=== PATIENT | male | born 1980 | race African-American/Black ===

== ENCOUNTER 2020-01-09 12:19 | Emergency (ER) | payer SELFPAY ==
[~2020-01-09] VITALS: Ht 167.6 cm; Wt 60.8 kg
[2020-01-09 12:26] VITALS: Ht 167.6 cm; Wt 60.8 kg
[2020-01-09 12:58] VITALS: BP 113/76
== END 2020-01-09 12:45 | disposition home or self-care (01) ==
LOC: ED 12:19
DX: S50.811A Abrasion of right forearm, initial encounter (principal); S60.512A Abrasion of left hand, initial encounter; S60.511A Abrasion of right hand, initial encounter; S80.212A Abrasion, left knee, initial encounter; S00.511A Abrasion of lip, initial encounter; V89.2XXA Person injured in unspecified motor-vehicle accident, traffic, initial encounter; Y93.I9 Activity, other involving external motion; Y92.413 State road as the place of occurrence of the external cause; Y99.8 Other external cause status